=== PATIENT | male | born 1970 | race Caucasian/White ===

== ENCOUNTER 2018-08-02 12:58 | Emergency (ER) | payer BC ==
[~2018-08-02] VITALS: Ht 154.9 cm; Wt 74.8 kg
[~2018-08-02 12:58] MED LIST: AUGMENTIN 875875 MG PO; CELLCEPT500 MG PO; FOSAMAX40 MG PO; K-PHOS NEUTRAL250 MG PO; LIPITOR; LISINOPRIL2.5 MG PO; MAG-OX 400 TAB400 M1 PO; MULTIPLE VITAM1 EAC1 PO; NORCO 5-325 TA1 EACH PO; PREDNISONE 5 MG5 M1 PO; PROGRAF5 MG PO; PROTONIX PO
[2018-08-02 13:07] VITALS: BP 136/82
[2018-08-02] MEDS ORDERED: NORCO 5-325 TA1 EACH PO (13:46)
== END 2018-08-02 14:14 | disposition home or self-care (01) ==
LOC: M.ERS 12:58
DX: M25.561 Pain in right knee (principal); N18.9 Chronic kidney disease, unspecified; Z88.8 Allergy status to other drugs, medicaments and biological substances